=== PATIENT | male | born 1950 | race African-American/Black ===

== ENCOUNTER 2019-04-23 14:12 | Emergency (ER) | payer OTHER ==
[~2019-04-23] VITALS: Ht 177.8 cm; Wt 80.0 kg
[~2019-04-23 14:12] MED LIST: ACET-3161; CLON2TAB
[2019-04-23] MEDS ORDERED: KETOROLAC 15MG/ML VIAL IM ONE (17:30)
[2019-04-23 18:40] VITALS: BP 150/98
== END 2019-04-23 18:41 | disposition home or self-care (01) ==
LOC: ER 14:12
DX: M19.041 Primary osteoarthritis, right hand (principal); M79.641 Pain in right hand; I10 Essential (primary) hypertension; M10.9 Gout, unspecified; Z88.6 Allergy status to analgesic agent
CPT/HCPCS: 73130; 96372; 99283; J1885